=== PATIENT | female | born 2005 | race Caucasian/White ===

== ENCOUNTER 2024-03-09 12:33 | Outpatient (CLI) | payer MEDICAID | END 2024-03-09 23:59 | disposition home or self-care (01) | LOC: RAD 12:33 | PROVIDERS: ATTEND Physician Assistant | DX: O32.1XX0 Maternal care for breech presentation, not applicable or unspecified (principal); Z3A.29 29 weeks gestation of pregnancy | CPT/HCPCS: 76805 ==

== ENCOUNTER 2024-04-18 15:28 | Outpatient (CLI) | payer MEDICAID | END 2024-04-18 23:59 | disposition home or self-care (01) | LOC: RAD 15:28 | PROVIDERS: ATTEND Physician Assistant | DX: O09.92 Supervision of high risk pregnancy, unspecified, second trimester (principal); Z3A.26 26 weeks gestation of pregnancy | CPT/HCPCS: 76815 ==